=== PATIENT | male | born 1985 | race Caucasian/White ===

== ENCOUNTER 2018-05-06 19:52 | Observation (INO) | payer OTHER ==
[~2018-05-06] VITALS: Ht 185.4 cm; Wt 77.8 kg
[~2018-05-06 19:52] MED LIST: CYCLOBENZAPRINE10 MG PO; ULTRAM50 MG PO
--- NOTE | 2018-05-07 00:10 | NUR ---
PT ADMITTED TO ROOM 122 FROM ED, RIGHT TESTICULAR PAIN. ABLE TO SLIDE FROM STRETCHER TO BED, PAINFUL. ALERT AND ORIENTATED. AWARE HE MUST USE CALL LIGHT TO HAVE STAFF WITH HIM TO USE BATHROOM. AWARE HE IS NPO.
--- NOTE | 2018-05-07 00:24 | NUR ---
PT AMBULATED TO BATHROOM, COMPLAINTS OF PAIN, LIMITED WALKING ABILITY. OFFERED TO HAVE HIM STAND NEXT TO BED, BUT HE CHOSE TO WALK TO BATHROOM. ONCE BACK IN BED, NOTABLE PAIN.
--- NOTE | 2018-05-07 00:55 | NUR ---
PT ASSESSMENT COMPLETE. PT UP TO BATHROOM AND BACK TO BED. PT RATES PAIN 9/10 AFTER RETURNING FROM BATHROOM. PT WITH TEARS STREAMING FROM EYES. PRN DILAUDID ADMINISTERED. SCROTAL EDEMA NOTED WELL GENERALIZED REDNESS TO SY AREA. PT HESITANT TO REMOVE UNDERWEAR INITALLY. PT STATES IMMEDIATE RELIEF FROM PRN PAIN MEDICATION. DENIES FURTHER NEEDS. PT ORIENTED TO ROOM, CALL LIGHT SYSTEM. EDUCATION REGARDING SAFETY, CALLING FOR ASSISTANCE PROVIDED. PT STATES UNDERSTANDING. CALL LIGHT IN REACH.
--- NOTE | 2018-05-07 01:48 | NUR ---
PT RESTING IN BED WITH EYES CLOSED. RESPIRATIONS EVEN AND UNLABORED. RR 12. NO APPARENT S/SX OF DISTRESS PRESENT. PT DOES NOT WAKE WHEN SALES ACCOUNT EXECUTIVE IN DOORWAY. CALL LIGHT IN REACH.
--- NOTE | 2018-05-07 02:33 | NUR ---
PT RESTING IN BED WITH EYES CLOSED. RESPIRATIONS ARE EVEN AND UNLABORED. RR 16. PT DOES NOT WAKE WHILE SIGNAL MAINTAINER IN ROOM. CALL LIGHT IN REACH.
--- NOTE | 2018-05-07 05:05 | NUR ---
PT ASSESSMENT COMPLETE. PT STATES THAT PAIN CONTINUES TO BE IMPROVED FROM EARLIER, RATES 5/10. STATES "IT'S JUST DULL". PT REQUESTS ICE WATER, REQUESTS URINAL BE PLACED AT BEDSIDE. PROVIDED. PT DENIES FURTHER NEEDS. CALL LIGHT WITHIN REACH.
--- NOTE | 2018-05-07 05:40 | NUR ---
MD NOTIFIED REGARDING ELEVATED TEMP 101.5, NEW ORDER RECEIVED FOR TYLENOL PRN. ADMINISTERED. PT DENIES FURTHER NEEDS. CALL LIGHT IN REACH.
--- NOTE | 2018-05-07 06:07 | NUR ---
PT SLEPT WELL AFTER DILAUDID ADMINISTRATION AT ~0100. PAIN INITIALLY 9/10 AFTER AMBULATION, DOWN TO 4-5/10 WITH DILAUDID. SCROTUM REDDENED AND SWOLLEN, NINO. TO R TESTICLE. IV SL. 1 PA, IMPAIRED GAIT SECONDARY TO SCROTAL PAIN. UO QS. URINAL AT BEDSIDE.
--- NOTE | 2018-05-07 07:25 | NUR ---
Pt awake, alert and oriented x3. Respirations even and non labored. Pulse ox intact, 99% oxygen level. Pt reports pain related to edema throughout lower ext. Per report pt voiding well. Personal supplies and call light within reach.
--- NOTE | 2018-05-07 08:34 | NUR ---
Provider in to see pt. New orders placed for pt.
--- NOTE | 2018-05-07 10:49 | NUR ---
PATIENT IN BED RESTING WITH EYES CLOSED. CALL LIGHT IN REACH. NO FURTHER NEEDS AT THIS TIME.
--- NOTE | 2018-05-07 11:44 | NUR ---
Pt sleeping, resp even and non labored. Pt has no notable distress. voiding q/s, clear yellow urine. Personal supplies and call light within reach.
--- NOTE | 2018-05-07 14:05 | NUR ---
Pt sleeping, respirations even and non labored. Iv fluids infusing. Pt appears comfortable and without notable distress. Pt voiding q/s urine output. Personal supplies within reach.
--- NOTE | 2018-05-07 14:13 | NUR ---
PATIENT IN BED RESTING WITH EYES CLOSED. FRESH WATER GIVEN. CALL LIGHT IN REACH. NO FURTHER NEEDS AT THIS TIME.
--- NOTE | 2018-05-07 15:09 | NUR ---
MED REC COMPLETE
--- NOTE | 2018-05-07 16:05 | NUR ---
Pt sleeping in bed, resp even and non labored. Pt appears comfortable, with no notable distress. Pain is tolerable at this time. Personal supplies and call light withiin reach.
--- NOTE | 2018-05-07 16:09 | NUR ---
WARM PACK PROVIDED TO PT FOR COMFORT.
--- NOTE | 2018-05-07 16:44 | NUR ---
PT ON RA. TOLERATING REGULAR DIET. OXY PRN PAIN. UP TO RESTROOM STANDBY. VOIDING Q/S. IV ABX. WARM PACKS TO TESTES.
--- NOTE | 2018-05-07 18:08 | NUR ---
PATIENT IN BED WATCHING TV. CALL LIGHT IN REACH. NO FURTHER NEEDS AT THIS TIME.
--- NOTE | 2018-05-07 19:18 | NUR ---
RECIEVED CHANGE OF SHIFT REPORT FROM GENEVA MIRELES. PATIENT RESTING AWAKE IN BED. POSSESSIONS AT BEDSIDE. WHITE BOARD UPDATED. CALL LIGHT WITHIN REACH. NO MORE NEEDS AT THIS TIME.
--- NOTE | 2018-05-07 19:35 | NUR ---
CHARGE NURSE REPORT RECEIVED FROM ALINE BRANNON DAYCHAR. PT AWAKE, SITTING UP IN BED EATING FOOD. INQUIRED OF HIS CONDITION, HE REPLIED HE FELT BETTER NOW. NO NEEDS AT THIS TIME.
--- NOTE | 2018-05-07 21:20 | NUR ---
ROUNDED ON PATIENT TO ADMINSTER PRN PAIN MEDICATION. PATIENT REPORTS "5/10" PAIN IN SCROTUM. PATIENT WOULD LIKE TO SHOWER IN 30 MINUTES OR SO AFTER TAKING PRN PAIN MEDICATION. CALL LIGHT WITHIN REACH. NO MORE NEEDS AT THIS TIME.
--- NOTE | 2018-05-07 21:33 | NUR ---
ALINE SHAIKH NOTIFIED RE TEMP.
--- NOTE | 2018-05-07 21:55 | NUR ---
PATIENT SL AND IS NOW TAKING A SHOWER. PATIENT EDUCATED TO CALL WHEN SHOWER IS COMPLETED. PATIENT VERBALIZES UNDERSTANDING.
--- NOTE | 2018-05-07 22:17 | NUR ---
V/S AND I&O DONE AND CHARTED.
--- NOTE | 2018-05-07 22:44 | NUR ---
ASSESSMENT COMPLETE. SCHEDULED MEDICATIONS ADMINSTERED PER ORDER. PATIENT REPORTS PAIN A "5/10" PAIN IN SCROTUM AND LOWER LEFT ABDOMEN, PRN PAIN MEDICATIONS PROVIDED AT 2120. IV HOOKED BACK UP AND INFUSING PER ORDER. ACTIVE BOWEL TONES PRESENT. PATIENT DENIES CHEST PAIN, SOB, OR DIFFICULTY BREATHING. SWOLLEN SCROTOM NOTED, SLIGHT REDNESS PRESENT. CALL LIGHT WITHIN REACH. NO MORE NEEDS AT THIS TIME.
--- NOTE | 2018-05-07 23:27 | NUR ---
ROUNDED ON PATIENT TO ADMINISTER SCHEDULED IV ABX. IV ABX ADMINSTRATION TIME DELAYED DUE TO PATIENT TAKING SHOWER AND PREVIOUS IV ABX INFUSING. CALL LIGHT WITHIN REACH. NO MORE NEEDS AT THIS TIME. PATINET RESTING ON AND OFF WHILE WATCHING TV.
--- NOTE | 2018-05-08 01:15 | NUR ---
ROUNDED ON PATIENT. RESPIRATORY RATE EVEN AND UNLABORED, NO SIGNS OF TENSING OR GRIMACING. IV FLUIDS INFUSING PER MAR ORDER. IV ABX FINISHED INFUSING. FRESH WATER BROUGHT TO PATIENT. URINAL EMPTIED. CALL LIGHT WITHIN REACH. NO MORE NEEDS AT THIS TIME.
--- NOTE | 2018-05-08 05:36 | NUR ---
ASSESSEMENT COMPLETE. VITALS ASSESSED AND RECORDED. INTAKE AND OUTPUT ASSESSED AND RECORDED. SCROTAL EDEMA PRESENT AND SLIGHTLY RED IN NATURE. PATIENT REPORTS PAIN IS A "5/10" AND STATES "MY PAIN IS DOING ALRIGHT". NOTIFIED RADIOLOGY ADMINISTRATOR TO BRING PATIENT A WARM BLANKETS AND WARM PACK FOR SCROTAL REGION. IV FLUIDS INFUSING PER MAR. CALL LIGHT WITHIN REACH. NO MORE NEEDS AT THIS TIME. PATIENT DENIES HAVING SOB, DIFFICULTY BREATHING, OR SHORTNESS OF BREATH. PATIENT DENIES HAVING NUMBNESS AND/OR TINGLING IN EXTREMITIES.
--- NOTE | 2018-05-08 06:11 | NUR ---
PATIENT RESTED WELL FOR THE MAJPRITY OF THE SHIFT. PATIENT IS ON A REGULAR DIET. PATIENT IS INDEPENDENT IN THE ROOM AND IS STEADY ON HIS FEET. PATIENT USES URINAL AT THE BEDSIDE. SCROTAL AREA EDEMA NOTED. PATIENT PROVIDED WITH WARM PACKS TO SCROTAL AREA PER ORDER. PATIENT RECIEVED PRN PAIN MEDICATION X1. PATIENT RECEIVED PRN TYLENOL X1. PATIENT IS AAOX3 AND USES CALL LIGHT APPROPRIATELY.
--- NOTE | 2018-05-08 08:44 | NUR ---
MORNING ASSESSMENT DONE. PATIENT RATES SCROTAL PAIN 4/10 AND THIS IS THE BEST HIS PAIN RATING HAS BEEN. WARM PACK TO SCROTUM, RIGHT TESTICLE IF FIRM, REDNESS NOTED. PATIENT IS VOIDING WELL, HAS GOOD APPETITE, NO NAUSEA. DENIES OTHER NEEDS AT THIS TIME.
--- NOTE | 2018-05-08 10:44 | NUR ---
PATIENT SLEEPING WITH REGULAR RESPIRATIONS.
--- NOTE | 2018-05-08 13:48 | NUR ---
PATIENT SALINE LOCKED, UP TO SHOWER.
--- NOTE | 2018-05-08 14:18 | NUR ---
PT NOT VERY FORTHCOMING WITH INFORMATION ABOUT HIS LIVING SITUATION OR ANY OTHER INFORMATION THAT WAS ASKED OF HIM. PT VERY EVASIVE WITH ANSWERS, GIVING SEVERAL DIFFERENT ANSWERS.
--- NOTE | 2018-05-08 14:26 | NUR ---
PATIENT REPORTS FEELING BETTER AFTER TAKING A SHOWER, IS SALINE LOCKED, GIVEN EDUCATION ON ILLNESS.
--- NOTE | 2018-05-08 16:28 | NUR ---
PATIENT SLEEPING WITH REGULAR RESPIRATIONS.
--- NOTE | 2018-05-08 16:29 | NUR ---
PATIENT HAS BEEN RESTING FOR MOST OF THE DAY, HAS BEEN UP TO THE SHOWER THIS AFTERNOON. PATIENT IS CURRENTLY SALINE LOCKED, AD STEPHANIE ACTIVITY. PATIENT ENDORSES THAT HE FEELING A BIT BETTER TODAY. PLAN IS FOR PATIENT TO DISCHARGE HOME TOMORROW.
--- NOTE | 2018-05-08 19:11 | NUR ---
RECIEVED CHANGE OF SHIFT REPORT FROM MARIA DEL CARMEN MIRELES. PATIENT RESTING IN BED WITH EYES CLOSED. RESPIRATORY RATE IS EVEN AND UNLABORED. NO SIGN OF TENSING OR GRIMACING. CALL LIGHT WITHIN REACH.
--- NOTE | 2018-05-08 20:20 | NUR ---
ASSESSMENT COMPLETE. INTAKE AND OUTPUT ASSESSED AND RECORDED. VITALS ASSESSED AND RECORDED. PATIENT DENIES PAIN, PATIENT REPORTS PAIN IS "DOING PRETTY GOOD". PATIENT DENIES CHEST PAIN, SOB, OR DIFFICULTY BREATHING. IV ASSESSED TO BE PATENT. SCHEDULED MEDICATIONS ADMINISTRED PER MAR ORDER. SCROTAL EDEMA PRESENT, PATIENT REPORTS SCROTUM IS "GETTING BETTER". FRESH WATER AND JUICE PROVIDED TO PATIENT. CALL LIGHT WITHIN REACH. NO MORE NEEDS AT THIS TIME.
--- NOTE | 2018-05-08 20:30 | NUR ---
VITALS TAKEN AND RECORDED. INTAKE AND OUPUT REOCRDED. URINAL EMPTIED. ALINE OSUNA IN THE ROOM.
--- NOTE | 2018-05-08 21:28 | NUR ---
ABX COMPLETED INFUSING PATIENT IS NOW SL. GRAPE JUICE REFILLED. NO FURTHER NEEDS. CALL LIGHT IN REACH.
--- NOTE | 2018-05-09 01:19 | NUR ---
ROUNDED ON PATIENT RESTING IN BED, EYES CLOSED, RESPIRATORY RATE IS EVEN AND UNLABORED. URINAL EMPTIED. CALL LIGHT WITHIN REACH.
--- NOTE | 2018-05-09 03:13 | NUR ---
ROUNDED ON PATIENT RESTING IN BED, LAYING ON SIDE, RESPIRATORY RATE IS EVEN AND UNLABORED. CALL LIGHT WITHIN REACH.
--- NOTE | 2018-05-09 04:30 | NUR ---
ASSESSMENT COMPLETE. PATINET DENIES SOB, CHEST PAIN, OR DIFFICULTY BREATHING. IV PATENT, WNL. URINAL EMPTIED. SCROTAL EDEMA AND REDNESS PRESENT. PATIENT REPORTS "6/10" PAIN IN SCROTAL AREA, PRN PAIN MEDICATION PROVIDED. NOTIFIED CARRIER DRIVER TO BRING PATIENT WARM PACK. POSSESSIONS AT BEDSIDE. CALL LIGHT WITHIN REACH. NO MORE NEEDS AT THIS TIME.
--- NOTE | 2018-05-09 06:25 | NUR ---
PATIENT RESTED WELL THROUGHOUT THE SHIFT. PATIENT IS ON A REGULAR DIET, TOLERATING IT WELL, WARM PACKS PROVIDED. PATIENT IS SL. AFEBRILE. INDEPENDENT IN THE ROOM. USES CALL LIGHT APPROPRIATELY.
--- NOTE | 2018-05-09 08:11 | NUR ---
PATIENT RESTING IN BED, CALL LIGHT IN REACH. AM CARE SET UP IN BATHROOM FOR PATIENT TO USE AT A LATER TIME PER PATIENTS REQUEST, NO OTHER NEEDS AT THIS TIME.
--- NOTE | 2018-05-09 10:31 | NUR ---
MORNING ASSESSMENT DONE. PATIENT DENIES NEEDS. SCROTAL REDNESS IS GONE, PATIENT REPORTS THAT DISCOMFORT IS IMPROVED. ENCOURAGED PATIENT TO GET UP AND SHOWER/AMBULATE IN HALLWAYS.
--- NOTE | 2018-05-09 10:47 | NUR ---
PATIENT SET UP FOR A SHOWER, RN IN ROOM FOR ASSESSMENT. PATIENT INSTRUCTED TO CALL WHEN READY FOR HIS SHOWER. NO OTHER NEEDS AT THIS TIME.
[2018-05-09] MEDS ORDERED: CEFPODOXIME PR200 MG PO (11:27)
--- NOTE | 2018-05-09 12:14 | NUR ---
PATIENT GIVEN DISCHARGE INSTRUCTIONS, RIGHT ARM IV D/C'D WITH CATHETER INTACT. PATIENT IS GETTING DRESSED.
== END 2018-05-09 12:30 | disposition home or self-care (01) ==
LOC: ED 19:52 → MS 19:53
PROVIDERS: ADMIT Student in an Organized Health Care Education/Training Program
DX: A54.23 Gonococcal infection of other male genital organs (principal); N45.3 Epididymo-orchitis; F17.210 Nicotine dependence, cigarettes, uncomplicated
CPT/HCPCS: 36415; 74177; 76870; 80048; 80053; 81001; 83605; 83690; 83735; 85025; 85032; 86703; 87040; 87088; 87491; 87591; 96361; 96365; 96366; 96375; 96376; 99284-25; G0378; J0696; J1170; J1956; J2405; J7030; J7120; Q9967

== ENCOUNTER 2018-09-23 11:52 | Emergency (ER) | payer OTHER ==
[~2018-09-23] VITALS: Ht 185.4 cm; Wt 79.4 kg
--- OUTSIDE RECORDS SUMMARY | ~2018-09-23 | XMS | Clinical Summary ---
Demographics + + + | Address | NEED ADDRESS | | | [place] [address] | + + + | Home Phone | | + + + | Preferred Language | Unknown | + + + | Marital Status | Single | + + + | Moravian Affiliation | 1013 | + + + | Race | Unknown | + + + | Ethnic Group | Unknown | + + + Author + + + | Author | [facility] | | | and [place] | + + + | Organization | [facility] | | | and [place] | [...] Team Providers + +------+ + | Care Games Dealer Name | Role | Phone | + +------+ + | No, Physician | PP | Unavailable | + +------+ + Allergies [...] Vaccine: Influenza | | | | | (Season Ended) | 9 | | | + + + + + Results Not on filefrom Last 3 Months Advance Directives Patient has advance care planning documents on file. For more information, please contact:[facility] [place] [address]
--- OUTSIDE RECORDS SUMMARY | ~2018-09-23 | XMS | Clinical Summary ---
Demographics + + + | Address | NEED ADDRESS | | | [place] [address] | + + + | Home Phone | | + + + | Preferred Language | Unknown | + + + | Marital Status | Single | + + + | Christian Affiliation | 1013 | + + + | Race | Unknown | + + + | Ethnic Group | Unknown | + + + Author + + + | Author | [facility] | | | and [place] | + + + | Organization | [facility] | | | and [place] [...] Team Providers + +------+ + | Care Cardiac Cath Rn Name | Role | Phone | + [...] on file. For more information, please contact:[facility] [place] [address]
[~2018-09-23 11:52] MED LIST changes: +CEFPODOXIME PR200 MG PO
[2018-09-23] MEDS ORDERED: IBUPROFEN600 MG PO (14:13)
[2018-09-23] MEDS ORDERED: NORCO 5-325 TA1 EACH PO (14:13)
== END 2018-09-23 14:37 | disposition home or self-care (01) ==
LOC: ED 11:52
DX: S92.342A Displaced fracture of fourth metatarsal bone, left foot, initial encounter for closed fracture (principal); F17.200 Nicotine dependence, unspecified, uncomplicated; Z79.899 Other long term (current) drug therapy; W18.40XA Slipping, tripping and stumbling without falling, unspecified, initial encounter
CPT/HCPCS: 73630; 99283

== ENCOUNTER 2019-02-04 15:33 | Emergency (ER) | payer OTHER ==
[~2019-02-04] VITALS: Ht 185.4 cm; Wt 79.4 kg
--- OUTSIDE RECORDS SUMMARY | ~2019-02-04 | XMS | Clinical Summary ---
Demographics + + + | Address | NEED ADDRESS | | | [place] [address] | + + + | Home Phone | | + + + | Preferred Language | Unknown | + + + | Marital Status | Single | + + + | Jew Affiliation | 1013 | + + + | Race | Unknown | + + + | Ethnic Group | Unknown | + + + Author + + + | Author | [facility] | | | and [place] | + + + | Organization | [facility] | | | and [place] | + + + | Address | Unknown | + + + | Phone | Unavailable | + + + Support + + +---------+ + | Name | Relationship | Address | Phone | + + +---------+ + | Neisha Reddy | ECON | Unknown | | + + +---------+ + Care Team Providers + +------+ + | Care Vice President Corporate Communications Name | Role | Phone | + +------+ + | No, Physician | PCP | Unavailable | + +------+ + Allergies No Known Allergies Medications No known medications Active Problems Not on file Social History + + + +--------+------+ | Tobacco Use | Types | Packs/Day | Years | Date | | | | | Used | | + + + +--------+------+ | Current Every Day | Cigarettes | | | | | Smoker | | | | | + + + +--------+------+ + +---+---+---+ | Smokeless Tobacco: | | | | | Never Used | | | | + +---+---+---+ + + +---------+ + | Alcohol Use | Drinks/We | oz/Week | Comments | | | ek | | | + + +---------+ + | No | | | | + + +---------+ + + + + | Sex Assigned at | Date Recorded | | | | + + + | Not on file | | + + + + + + + | Job Start Date | Occupation | Industry | + + + + | Not on file | Not on file | Not on file | + + + + + + + + | Travel History | Travel Start | Travel End | + + + + + + | No recent travel history available. | + + Last Filed Vital Signs + + + + | Vital Sign | Reading | Time Taken | + + + + | Blood Pressure | 150/90 | 07/19/2016103 PDT | + + + + | Pulse | 82 | 07/19/2016103 PDT | + + + + | Temperature | 37.6 C (99.7 F) | 07/19/2016103 PDT | + + + + | Respiratory Rate | 16 | 07/19/2016103 PDT | + + + + | Oxygen Saturation | 100% | 07/19/2016103 PDT | + + + + | Inhaled Oxygen | - | - | | Concentration | | | + + + + | Weight | 78.5 kg (173 lb) | 07/19/2016103 PDT | + + + + | Height | 185.4 cm (6' 1") | 07/19/2016103 PDT | + + + + | Body Mass Index | 22.82 | 07/19/2016 0104 PDT | + + + + Plan of Treatment + + + + + | Health Maintenance | Due Date | Last Done | Comments | + + + + + | Vaccine: | | | | | Dtap/Tdap/Td (1 - | 5 | | | | Tdap) | | | | + + + + + | Vaccine: Influenza | | | | | (#1) | 9 | | | + + + + + Results Not on filefrom Last 3 Months Advance Directives Patient has advance care planning documents on file. For more information, please contact:[facility] [place] [address]
[~2019-02-04 15:33] MED LIST changes: +IBUPROFEN600 MG PO; +NORCO 5-325 TA1 EACH PO
== END 2019-02-04 17:05 | disposition home or self-care (01) ==
LOC: ED 15:33
DX: S80.11XA Contusion of right lower leg, initial encounter (principal); F17.200 Nicotine dependence, unspecified, uncomplicated; W22.8XXA Striking against or struck by other objects, initial encounter
CPT/HCPCS: 73590; 99283

== ENCOUNTER 2019-05-22 09:02 | Emergency (ER) | payer OTHER ==
[~2019-05-22] VITALS: Ht 185.4 cm; Wt 77.1 kg
== END 2019-05-22 17:40 | disposition short-term general hospital (02) ==
LOC: ED 09:02
DX: S62.012 Displaced fracture of distal pole of navicular [scaphoid] bone of left wrist (principal); W26.8XXA Contact with other sharp object(s), not elsewhere classified, initial encounter; F17.200 Nicotine dependence, unspecified, uncomplicated
CPT/HCPCS: 73110; 73130; 80053; 85025; 85610; 96361; 96374; 96375; 96376; 99284-25; J0690; J1170; J2405; J7030

== ENCOUNTER 2022-04-08 21:15 | Emergency (ER) | payer OTHER ==
[~2022-04-08] VITALS: Ht 185.4 cm; Wt 82.4 kg
[2022-04-08] MEDS ORDERED: BACTRIM DS TAB1 EACH PO (21:31)
== END 2022-04-08 22:20 | disposition home or self-care (01) ==
LOC: ED 21:15
DX: L03.221 Cellulitis of neck (principal); L03.114 Cellulitis of left upper limb
CPT/HCPCS: 99283; A9270

== ENCOUNTER 2023-01-31 03:37 | Emergency (ER) | payer OTHER ==
[~2023-01-31] VITALS: Ht 185.4 cm; Wt 77.5 kg
[~2023-01-31 03:37] MED LIST changes: +BACTRIM DS TAB1 EACH PO
[2023-01-31] MEDS ORDERED: HYDROCODON-ACE1 EA10 PO (05:28)
[2023-01-31] MEDS ORDERED: AMOX TR-K CLV1 EAC1 PO (05:28)
[2023-01-31 05:58] VITALS: BP 129/92
== END 2023-01-31 05:59 | disposition home or self-care (01) ==
LOC: ED 03:37
DX: S02.32XA Fracture of orbital floor, left side, initial encounter for closed fracture (principal); S02.842A Fracture of lateral orbital wall, left side, initial encounter for closed fracture; S02.40DA Maxillary fracture, left side, initial encounter for closed fracture; S02.69XA Fracture of mandible of other specified site, initial encounter for closed fracture; S02.40FA Zygomatic fracture, left side, initial encounter for closed fracture; Y00.XXXA Assault by blunt object, initial encounter; F17.200 Nicotine dependence, unspecified, uncomplicated; Z79.899 Other long term (current) drug therapy
CPT/HCPCS: 70450; 70486; A9270; J1170; J2405